=== PATIENT | female | born 1945 | race Caucasian/White ===

== ENCOUNTER 2025-05-17 17:45 | Emergency (ER) | payer OTHER, MEDICARE ==
[2025-05-17 18:08] LABS: MEAN PLATELET VOLUME 11.0 fL (6.0-10.0); PLATELET COUNT,PLT 268.0 K/uL (150-500); RED BLOOD CELL COUNT 3.81 M/uL (3.80-5.80); RED CELL DISTRIBUTION WIDTH 13.1 % (11.0-16.0); WHITE BLOOD CELL COUNT,WBC 6.4 K/uL (4.0-11.0)
[2025-05-17 18:27] LABS: A/G RATIO 1.3 (0.8-2.0); ALANINE AMINOTRANSFERASE,ALT 33.0 U/L (12-78); ASPARTATE AMNIOTRANSFERASE,AST 22.0 U/L (15-37); BILIRUBIN TOTAL 0.4 mg/dL (0.0-1.0); BLOOD UREA NITROGEN,BUN 20.0 mg/dL (8-26); CARBON DIOXIDE,CO2 28.6 mmol/L (21.0-32.0); CHLORIDE,CL 107.0 mmol/L (98-107); CREATININE 1.08 mg/dL (0.55-1.02); EST CRCL DRUG DOSING (CG) 32.4 mL/min; ESTIMATED GFR 53.0 mL/min (>60); GLUCOSE RANDOM 239.0 mg/dL (74-100); POTASSIUM,K 4.3 mmol/L (3.5-5.1); PROTEIN TOTAL,TP 6.3 g/dL (6.4-8.2); SODIUM,NA 144.0 mmol/L (136-145)
[2025-05-17 18:28] LABS: LACTIC ACID 0.9 mmol/L (0.4-2.0)
[2025-05-17 18:35] LABS: INR 1.0 (1.0-3.5)
[2025-05-17 18:55] LABS: BASE EXCESS VENOUS 1.5 mm/L (-2-3); BICARBONATE,VENOUS 26.0 mmol/L (23.0-28.0); PCO2 VENOUS 40.3 mm/Hg (41-51); PH,VENOUS 7.42 (7.31-7.41)
[2025-05-17 19:49] LABS: APPEARANCE,URINE TURBID (CLEAR); GLUCOSE,URINE NEGATIVE (NEGATIVE); OCCULT BLOOD,URINE TRACE-INTACT (NEGATIVE)
[2025-05-17 19:59] LABS: SQUAMOUS EPITHELIAL CELLS,UR OCCASIONAL /HPF; WBC CLUMPS,URINE RARE /HPF
== END 2025-05-17 19:55 | disposition home or self-care (01) ==
LOC: LB.ED 17:45
DX: S20.219A Contusion of unspecified front wall of thorax, initial encounter (principal); I10 Essential (primary) hypertension; J45.909 Unspecified asthma, uncomplicated; K21.9 Gastro-esophageal reflux disease without esophagitis; E10.9 Type 1 diabetes mellitus without complications; Z88.8 Allergy status to other drugs, medicaments and biological substances; Z79.4 Long term (current) use of insulin; Z79.899 Other long term (current) drug therapy; Z90.710 Acquired absence of both cervix and uterus; Z87.891 Personal history of nicotine dependence; V26.49XA Other motorcycle driver injured in collision with other nonmotor vehicle in traffic accident, initial encounter
CPT/HCPCS: 36415; 70450; 71045; 72125; 72128; 80053; 81001; 82803; 83605; 83690; 85027; 85610; 86850; 86900; 86901; 87086; 93005; 94640; 99285; A0425; A0428; J7620; 93010; 99284; A9270-GY